=== PATIENT | male | born 1960 | race Caucasian/White ===

== ENCOUNTER 2016-12-15 12:50 | Day surgery (SDC) | payer OTHER ==
[~2016-12-15] VITALS: Ht 185.4 cm; Wt 99.8 kg
[~2016-12-15 12:50] MED LIST: 0.9% Sodium Chloride 1,000 ML IV SCH; FLUT12AE8 IH; LISI10TA PO; Sodium Chloride LOK Flush 10 mL Syringe IV PRN; fentaNYL-PF 50 mCg/mL 2 mL Inj IVPUSH PRN
[2016-12-15 13:26] VITALS: BP 146/78; PULSE 83; RESP 12; O2SAT 98
[2016-12-15] MEDS ORDERED: 0.9% Sodium Chloride 1,000 ML IV ONE (14:07)
[2016-12-15 14:46] VITALS: BP 128/73; PULSE 69; RESP 16; O2SAT 97
[2016-12-15 14:56] VITALS: BP 118/69; PULSE 62; RESP 16; O2SAT 96
[2016-12-15 15:04] VITALS: BP 125/60; PULSE 62; RESP 16; O2SAT 95
--- NOTE | 2016-12-15 15:25 | ENDO ---
[address] [address] ENDOSCOPY PROCEDURE PATIENT: CLAUDIA RODRIGUEZ : 1960 MR#: [id number] ADMIT: 12/15/2016 JOB ID: [id number] PRIMARY PROVIDER: Gabe Mclaughlin MD. PROCEDURE: Colonoscopy with cold forceps polypectomy and biopsies. INDICATIONS: A 56-year-old male who reports for colon cancer screening. EQUIPMENT: PCF-H180AL. SEDATION: 5 mg Versed, 100 mcg fentanyl. COMPLICATIONS: None identified. BOWEL PREP: Fair. PROCEDURE INFORMATION: After the risks and benefits were explained, written and verbal informed consent was obtained, the patient was brought into the endoscopy suite and placed in the left lateral decubitus position. Sedation was achieved using the above-stated medications with the addition of oxygen via nasal cannula. A digital rectal examination was accomplished. Mild internal hemorrhoids were noted. No other significant pathology appreciated. The scope was introduced into the rectum and advanced to the cecum as identified by the appendiceal orifice and ileocecal valve. The scope was slowly withdrawn to carefully examine the mucosa for any defects or lesions. Multiple direct views were made through the dentate line for exclusion of pathology. The colon was decompressed. The scope removed from the patient who tolerated the procedure well. FINDINGS: In the cecum there was a diminutive, perhaps 2-3 mm polyp removed with cold forceps. In the rectosigmoid region, there were a couple of the diminutive polyps ranging in size from 3-4 mm removed with cold forceps. At about 65 cm from the anal verge in the transverse colon, there was an unusual-looking fold, possibly was mildly inflammatory. I did not see any obvious adenomatous features. We elected to take a biopsy of this area for histologic analysis. For further identification if need be we placed a small 0.5 cc Deana ink tattoo just distal to the lesion in the bowel. Photographs were taken. ENDOSCOPIC DIAGNOSES: 1. Colon polyps. 2. Hemorrhoids. 3. Irregular transverse colon fold. RECOMMENDATIONS: 1. Await histopathology. 2. If the transverse colon fold does not reveal any suggestion of underlying adenomatous mucosa then repeat colonoscopy will likely be suggested for three years based on the presence of colon polyps in the cecum and rectum. 3. On the other hand, if there are adenomatous features identified in this biopsy then an early repeat colonoscopy will be recommended within the next 4-6 months.
--- NOTE | 2016-12-18 17:45 | PATH ---
SURGICAL PATHOLOGY Attending Physician:Macario Pablo CASE STATUS: Signed Out PATIENT NAME: CLAUDIA RODRIGUEZ PID: [id number] : 1960 DATE COLLECTED:12/15/2016 00:00 SPECIMEN: 1: Colon, Polyp 2: Colon, Polyp 3: Colon, Polyp CLINICAL HISTORY: 1). CECUM POLYP 2). TRANSVERSE POLYP 3). RECTO-SIGMOID POLYPS FINAL DIAGNOSIS: 1.CECUM, POLYP, BIOPSY: -TUBULAR ADENOMA. 2.TRANSVERSE POLYP, BIOPSY: - COLONIC MUCOSA WITH NO DIAGNOSTIC ABNORMALITY CONSISTENT WITH POLYPOID REDUNDANCY. - NEGATIVE FOR DYSPLASIA AND MALIGNANCY. - ADDITIONAL DEEPER LEVELS EXAMINED. 3.RECTOSIGMOID POLYPS, BIOPSY: - TUBULAR ADENOMA IN 2 OF 3 FRAGMENTS. - ONE FRAGMENT OF COLONIC MUCOSA WITH NO DIAGNOSTIC ABNORMALITY, CONSISTENT WITH POLYPOID REDUNDANCY, NEGATIVE FOR DYSPLASIA AND MALIGNANCY. ICD10 D12.6 GROSS DESCRIPTION: The specimen is received in three formalin filled containers labeled with the patient's name. 1). The specimen is labeled "cecum polyp" and consists of a 0.2 x 0.2 x 0.1 CM portion of tissue which is entirely submitted in cassette 1A. 2). The specimen is labeled "transverse polyp" and consists of a 0.3 x 0.2 x 0.2 CM portion of tissue which is entirely submitted in cassette 2A. 3). The specimen is labeled "recto-sig polyp" and consists of 3 portions of tissue which aggregate to 0.3 x 0.3 x 0.2 CM. The specimen is entirely submitted in cassette 3A. 12/16/2016DC MICRO DESCRIPTION: See diagnosis. ICD-9 CODES: CPT CODES: 1: 16695 2: 02929 3: 06627 Electronically Signed Out Marcial Leonard MD [facility] [address], [place] [address] Technical component performed at [facility], [facility] [address], [place], [address]
== END 2016-12-15 23:59 | disposition home or self-care (01) ==
LOC: END 12:50
PROVIDERS: ATTEND Internal Medicine Gastroenterology
DX: Z12.11 Encounter for screening for malignant neoplasm of colon (principal); K21.9 Gastro-esophageal reflux disease without esophagitis; I10 Essential (primary) hypertension; D12.0 Benign neoplasm of cecum; D12.7 Benign neoplasm of rectosigmoid junction
CPT/HCPCS: 45380; 45381; 88305; 99153; G0500; J2250; J3010; J7030